=== PATIENT | female | born 1995 | race Caucasian/White ===

== ENCOUNTER 2017-02-24 12:06 | Emergency (ER) | payer SELFPAY ==
[~2017-02-24] VITALS: Ht 154.9 cm; Wt 49.9 kg
--- NOTE | 2017-02-24 12:18 | NUR ---
PT BIB SELF C/O R INDEX FINGER LAC S/ CUTTING IT ON THE EDGE OF A SAFE WHILE MOVING FURNITURE THIS MORNING AT 0500. OPEN TO AIR BUT NOT BLEEDING ANYMORE. C/O MILD PAIN. NO OTHER COMPLAINTS. NAD NOTED. IN ER BED 10.
--- NOTE | 2017-02-24 13:02 | NUR ---
AT BEDSIDE FOR WOUND EVAL
[2017-02-24] MEDS ORDERED: TDAP [DIPH/PERTUSSIS/TET] 0.5 ML VIAL IM ONE (13:28)
[2017-02-24] MEDS: LIDOCAINE 1% INJ 50 ML MDV IJ STA (13:38)
[2017-02-24] MEDS: TDAP [DIPH/PERTUSSIS/TET] 0.5 ML VIAL IM STA (13:38)
[2017-02-24 13:39] VITALS: BP 107/62
--- NOTE | 2017-02-24 13:39 | NUR ---
WOUND DRESSED BY [facility]. Patient discharged to home in stable condition. Written and verbal after care instructions given. Patient verbalizes understanding of instruction.
== END 2017-02-24 13:41 | disposition home or self-care (01) ==
LOC: ER 12:11
DX: S61.210A Laceration without foreign body of right index finger without damage to nail, initial encounter (principal); W23.0XXA Caught, crushed, jammed, or pinched between moving objects, initial encounter; Y92.89 Other specified places as the place of occurrence of the external cause; Y93.89 Activity, other specified; Y99.8 Other external cause status
CPT/HCPCS: 12001; 73120; 90471; 90715; 99284; A4606; A6402; J3490; Z7610

== ENCOUNTER 2017-03-10 15:10 | Emergency (ER) | payer SELFPAY ==
[~2017-03-10] VITALS: Ht 154.9 cm; Wt 48.1 kg
[2017-03-10 15:10] VITALS: BP 128/58
--- NOTE | 2017-03-10 15:37 | NUR ---
CORRECTION: DIAGNOSIS: SUTURE REMOVAL INSTEAD OF CAT SCRATCH DISEASE.
== END 2017-03-10 15:31 | disposition home or self-care (01) ==
LOC: ER 15:11
DX: S61.210D Laceration without foreign body of right index finger without damage to nail, subsequent encounter (principal)
CPT/HCPCS: A4606; Z7502; Z7610